=== PATIENT | male | born 1980 | race African-American/Black ===

== ENCOUNTER 2019-09-22 09:50 | Emergency (ER) | payer SELFPAY | END 2019-09-22 11:26 | disposition home or self-care (01) | LOC: ERS 09:50 | DX: S20.219A Contusion of unspecified front wall of thorax, initial encounter (principal); F17.210 Nicotine dependence, cigarettes, uncomplicated; V89.2XXA Person injured in unspecified motor-vehicle accident, traffic, initial encounter | CPT/HCPCS: 99283 ==

== ENCOUNTER 2019-10-28 18:47 | Emergency (ER) | payer SELFPAY ==
[~2019-10-28 18:47] MED LIST: Iopamidol-370 76% 500 ML 1 ML ONE
[2019-10-28 19:19] LABS: #Eosinphils 0.1 thou/uL (0.0-0.7); #Lymphocytes 2.5 thou/uL (1.20-3.40); #Monocytes 0.4 thou/uL (0.11-0.59); #Neutrophils 2.9 thou/uL (1.40-6.50); %Basophils 0.5 % (0.0-1.0); %Eosinophils 0.9 % (0.0-10.0); %Lymphocytes 42.3 % (21.0-51.0); %Monocytes 7.5 % (0.0-10.0); %Neutrophils 48.9 % (42.0-75.0); Hemoglobin 14.1 g/dL (14.0-18.0); Mean Corpuscular HGB CONC 33.3 g/dL (32.0-36.0); Mean Corpuscular Hemoglobin 30.4 pg (27.0-31.0); Mean Corpuscular Volume 91.2 fL (78.0-98.0); Mean Platelet Volume 7.4 fL (7.4-10.4); Platelet Count 289 thou/uL (130-400); Red Blood Cell (RBC) Count 4.62 mill/uL (4.70-6.10); White Blood Cell (WBC) Count 5.9 thou/uL (4.8-10.8)
[2019-10-28 19:44] LABS: ALT (SGPT) 8 U/L (8-55); AST (SGOT) 14 U/L (5-34); Albumin 3.9 g/dL (3.5-5.0); Alkaline Phosphatase 88 U/L (40-110); Anion Gap 11 mmol/L (10-20); BUN (Urea Nitrogen) 9 mg/dL (8.9-20.6); Bilirubin, Total 0.9 mg/dL (0.2-1.2); Calc. Creatinine Clearance 0 mL/min (70-130); Calcium 8.6 mg/dL (7.8-10.44); Carbon Dioxide 26 mmol/L (22-29); Chloride 106 mmol/L (98-107); Estimated GFR-MDRD 89; Globulin 2.9 g/dL (2.4-3.5); Glucose 131 mg/dL (70-105); Lipase 72 U/L (8-78); Potassium 3.5 mmol/L (3.5-5.1); Protein, Total 6.8 g/dL (6.0-8.3); Sodium 139 mmol/L (136-145)
[2019-10-28 20:25] LABS: Bacteria/HPF None Seen HPF (None Seen); Bilirubin Negative (Negative); Blood, Urine Trace (Negative); Clarity Clear (Clear); Glucose, Urine (Dipstick) Normal (Negative); Leukocyte 250 Leu/uL (Negative); Nitrite Negative (Negative); Protein, Urine (Dipstick) 10 mg/dL (Neg-Trace); RBC/HPF 0-3 HPF (0-3); Squamous Epithelial None Seen HPF (0-3); WBC/HPF Greater than 50 HPF (0-3)
--- NOTE | 2019-10-28 22:30 | CT ---
CT ABDOMEN AND PELVIS WITH IV CONTRAST 10/28/2019 CLINICAL INFORMATION: Abdominal pain that began 2 days ago. Patient states pain is greater on the right compared to the lef t. Provided clinical history is right lower quadrant pain. COMPARISON: None. Technique: Multiple contiguous axial CT images are obtained through the abdomen and pelvis with IV contrast. Cor onal reformatted images are provided. FINDINGS: Lower Chest: within normal limits. Vessels: Abdominal aorta is normal in caliber without evidence of an aortic dissection. Abdomen: Portal vein:Patent Gallbladder: Within normal limits for CT imaging. Liver: within normal limits. Spleen: within normal limits. Pancreas: within normal limits. Adrenals: within normal limits. Kidneys: within normal limits. Bowel: Normal caliber. Appendix: The appendix is visualized and normal in caliber and filled with gas. Peritoneum: Small amount of free fluid is seen in the lower pelvis which is of uncertain etiology but is abnormal in a male patient. Mesentery and Retroperitoneum: No enlarged mesenteric or retroperitoneal lymph nodes. Abdominal Wall: within normal limits. Pelvis: Reproductive Organs: No pelvic masses. Pelvis within normal limits. Bladder: within normal limits. Bones: Mild degenerative changes at the L1-2 level. IMPRESSION: 1. Small amount of free fluid in the lower pelvis of uncertain etiology, but this is abnormal in a ma le patient. 2. No CT evidence of appendicitis.
[2019-10-28] MEDS ORDERED: cefTRIAXone\\ROCEPHIN 250 MG VIAL ONE (22:46)
[2019-10-28] MEDS ORDERED: Lidocaine 1% (PF) 30 ML VIAL ONE (22:47)
[2019-10-28] MEDS ORDERED: Doxycycline 100 MG CAP PO SCH (23:00)
--- NOTE | 2019-10-30 13:44 | EKG ---
Test Reason : Blood Pressure : / mmHG Vent. Rate : 046 BPM Atrial Rate : 046 BPM P-R Int : 172 ms QRS Dur : 088 ms QT Int : 446 ms P-R-T Axes : 029 006 002 degrees QTc Int : 390 ms Marked sinus bradycardia Abnormal ECG Confirmed by CLARI PESTEIN ([id number]), index editor NEIL HI ([id number]) on 10/30/2019 1:44:05 PM Referred By: Confirmed By:CLARI Monreal
== END 2019-10-28 22:59 | disposition home or self-care (01) ==
LOC: ERS 18:47
DX: N39.0 Urinary tract infection, site not specified (principal); F17.210 Nicotine dependence, cigarettes, uncomplicated
CPT/HCPCS: 36415; 74177; 80053; 81003; 81015; 83690; 85025; 93005; 96372; J0696; J2001; Q9967